=== PATIENT | male | born 1975 ===

== ENCOUNTER → 2016-08-14 | Outpatient (CLI) | payer BC ==
[~2016-08-14] VITALS: Ht 182.9 cm; Wt 86.0 kg
[~2016-08-14] MED LIST: ALEVE 220MG220 MG PO; MOTRIN 200200 MG/TAB PO; NORCO 325 MG-51 TAB PO
[2016-08-14 08:57] VITALS: BP 126/85; PULSE 76
[2016-08-14 09:56] VITALS: BP 121/94; PULSE 81
== END ==
LOC: COL.RAD 08:00
DX: M54.12 Radiculopathy, cervical region (principal)
CPT/HCPCS: J1100

== ENCOUNTER → 2019-11-10 | Outpatient (CLI) | payer BC | LOC: ZCOL.LAB 19:44 | DX: Z20.828 Contact with and (suspected) exposure to other viral communicable diseases (principal) ==